=== PATIENT | female | born 1995 | race Caucasian/White ===

== ENCOUNTER 2017-08-19 23:43 | Outpatient (CLI) | END 2017-08-20 03:30 | disposition home or self-care (01) ==

== ENCOUNTER 2017-09-17 13:04 | Outpatient (CLI) | END 2017-09-17 18:00 | disposition home or self-care (01) ==

== ENCOUNTER 2017-09-18 18:13 | Outpatient (CLI) | END 2017-09-18 20:49 | disposition home or self-care (01) ==

== ENCOUNTER 2017-09-23 07:36 | Inpatient (IN) | END 2017-09-28 13:30 | disposition home or self-care (01) | DRG 775 ==